=== PATIENT | female | born 1960 | race Caucasian/White ===

== ENCOUNTER 2018-05-25 17:59 | Inpatient (IN) | payer BC ==
[2018-05-25] MEDS ORDERED: Piperacillin/Tazobactam 4.5 GM VIAL ONE (18:31)
[2018-05-25] MEDS ORDERED: Magnesium 2 GM/50 ML BAG (IN WATER) ONE (18:31)
[2018-05-25 21:12] LABS: Lymphocytes 42 % (21-51); MDiff Complete? YES; Mean Corpuscular HGB CONC 32.2 g/dL (32.0-36.0); Mean Corpuscular Hemoglobin 30.1 pg (27.0-31.0); Mean Corpuscular Volume 93.4 fL (78.0-98.0); Mean Platelet Volume 7.9 fL (7.4-10.4); Monocytes 13 % (0-10); Neutrophil 43 % (42-75); Platelet Count 139 thou/uL (130-400); Platelet Morphology Comment Appears Adequate; RBC Distribution Width 14.9 % (11.5-14.5); Reactive Lymphocytes 2 % (0-10); Red Blood Cell (RBC) Count 3.32 mill/uL (4.20-5.40); White Blood Cell (WBC) Count 5.7 thou/uL (4.8-10.8)
[2018-05-25 21:38] LABS: Hemoglobin 9.4 g/dL (12.0-16.0)
[2018-05-25] MEDS ORDERED: Ondansetron ODT 4 MG TAB SL PRN (21:50)
[2018-05-25] MEDS ORDERED: Acetaminophen 325 MG TAB PO PRN (21:50)
[2018-05-25] MEDS ORDERED: Ondansetron PF 4 MG/2 ML Vial IVP PRN (21:50)
[2018-05-25] MEDS ORDERED: Sodium Chloride 0.9% 1,000 ML IV SCH (21:50)
[2018-05-25] MEDS ORDERED: Morphine 4 MG/ML VIAL SLOW IVP PRN (21:51)
[2018-05-25 22:10] LABS: Anion Gap 10 mmol/L (10-20); BUN (Urea Nitrogen) 11 mg/dL (9.8-20.1); Calc. Creatinine Clearance 0 mL/min (70-130); Carbon Dioxide 29 mmol/L (22-29); Chloride 97 mmol/L (98-107); Estimated GFR-MDRD 52; Glucose 87 mg/dL (70-105); Iron 37 ug/dL (50-170); Iron Binding Capacity, Total 194 mcg/dL (265-497); Potassium 3.1 mmol/L (3.5-5.1); Sodium 133 mmol/L (136-145)
[2018-05-25] MEDS: Pantoprazole 40 MG VIAL IVP SCH (22:33)
[2018-05-25 22:40] VITALS: BMI 37.1
[2018-05-26] MEDS: NS 0.9% w/ 40 MEQ KCL 1,000 ML IV SCH (01:52)
[2018-05-26] MEDS: Piperacillin/Tazobactam 3.375 GM in Sodium Chloride 0.9% 100 ML IVPB SCH (01:52)
--- NOTE | 2018-05-26 02:14 | HP ---
PRIMARY CARE PHYSICIAN: Dr. Melgar. CHIEF COMPLAINT: GI bleed. HISTORY OF PRESENT ILLNESS: Ms. Piper is a 58-year-old female who was a transfer from [facility] ER for a GI bleed, who has had rectal bleeding since 03/03/2018. Reports that it had stopped for the last 2 days, it had resumed today. She reports associated diffuse abdominal pain, back pain. The patient does report that she had had banding of hemorrhoids done 2 weeks ago with moderate success. Reports that she still has sergo red blood per rectum. She was evaluated in the emergency room in [place]. She had a hemoglobin of 6.7. They gave her 3 units of packed red blood cells. 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 Reports that she has had some abdominal distention and 3+ bilateral pitting edema. She has been increasingly getting worse over the last several weeks. The patient's hemoglobin was rechecked on arrival here and is 10.0. Sodium 133, potassium 3.1. Iron is 37, TIBC is 194, percent saturation is 19, and ferritin is 101.16. The patient was given a dose of Zosyn in the emergency room and magnesium 2 g and will be admitted to the medical floor for further management and GI consult. PAST MEDICAL HISTORY: Includes cirrhosis, hep C. Does report hematochezia intermittently since March. PAST SURGICAL HISTORY: Hysterectomy, tonsillectomy, cholecystectomy, hemorrhoid banding 2 weeks ago. SOCIAL HISTORY: Denies current alcohol use. Does report alcohol use in the past. Denies drug use. She is a former smoker. FAMILY HISTORY: She does live with her . KNOWN ALLERGIES: None. CURRENT MEDICATIONS: 1. Hydrocodone/Tylenol 5 mg/300 mg q.6 hours as needed. 2. Lasix 20 mg p.o. daily. 3. MiraLAX 17 g daily as needed. 4. Xanax 0.25 mg p.o. as needed. REVIEW OF SYSTEMS: CONSTITUTIONAL: The patient denies chills or fever. EYES: Denies any eye pain or vision changes. ENT: Denies sore throat or rhinorrhea. CARDIOVASCULAR: Denies chest pain or palpitations. RESPIRATORY: Denies shortness of breath or cough. GI: Does report diffuse abdominal pain. Denies constipation, diarrhea, nausea, or vomiting. Does report some hematochezia. Reports melena as well as bright red blood per rectum. MUSCULOSKELETAL: Reports some chronic back pain. Denies deformity or fall. Denies injury. SKIN: Denies rash or changes. NEUROLOGIC: Denies headache. Notes all other review of systems are negative unless mentioned in the HPI. PHYSICAL EXAMINATION: VITAL SIGNS: Blood pressure 104/58, pulse is 86, respirations 20, temperature is 98, and O2 saturations are 93% on room air. CONSTITUTIONAL: The patient appears nontoxic, is alert and oriented to person, place, and time. HEENT: Head is atraumatic and normocephalic. Eyes; eyelids are normal to inspection. Pupils are equally round and reactive to light. ENT; mucous membranes are moist. Mouth exam is normal. NECK: Normal range of motion. Trachea is midline. RESPIRATORY/CHEST: Breath sounds are clear. Chest movement is symmetrical. CARDIOVASCULAR: Heart rate, regular rate and rhythm. Heart sounds are normal. ABDOMEN: Diffusely mildly tender. Bowel sounds are heard. BACK: Normal to inspection. Normal range of motion. No tenderness. EXTREMITIES: Upper extremity; normal inspection. Normal range of motion. Lower extremity; normal range of motion. Pedal pulses are equal bilaterally. Edema is noted bilaterally +2. NEURO: The patient is oriented to person, place, and time. Speech is normal. No focal motor or sensory deficits. SKIN: Warm, dry, normal in color. PSYCHIATRIC: The patient has normal affect. IMAGING STUDIES: EKG in the emergency room shows beats per minute 91, axis is normal, low-voltage QRS, prolonged QT. The patient is a full code. ASSESSMENT AND PLAN: 1. Gastrointestinal bleed. We will obtain serial hemoglobin and hematocrit. We will start IV fluids, Protonix IV q.12. Iron studies have been ordered. We will keep the patient n.p.o. Dr. Quiros, GI physician has been contacted by the ER. We will consult them to see the patient as an inpatient. 2. Hyponatremia. Sodium is currently 133. We will give normal saline at 120 mL/h. 3. Potassium is 3.1. We will supplement. We will add some potassium to fluids and recheck in the morning. 4. History of cirrhosis and ascites. We will check liver function, coagulation studies in the morning. GI will be consulted for gastrointestinal bleed as well. Hospital course will depend on clinical findings. Job ID: [id number]
[2018-05-26 05:06] LABS: INR-International Normal Ratio 1.8; Prothrombin Time 21.3 SEC (12.0-14.7)
[2018-05-26 05:18] LABS: ALT (SGPT) 19 U/L (8-55); AST (SGOT) 58 U/L (5-34); Albumin 1.8 g/dL (3.5-5.0); Alkaline Phosphatase 84 U/L (40-150); Anion Gap 8 mmol/L (10-20); BUN (Urea Nitrogen) 10 mg/dL (9.8-20.1); Bilirubin, Total 2.6 mg/dL (0.2-1.2); Calc. Creatinine Clearance 91 mL/min (70-130); Calcium 7.8 mg/dL (7.8-10.44); Carbon Dioxide 29 mmol/L (22-29); Chloride 99 mmol/L (98-107); Estimated GFR-MDRD 56; Globulin 3.1 g/dL (2.4-3.5); Glucose 74 mg/dL (70-105); Protein, Total 4.9 g/dL (6.0-8.3); Sodium 133 mmol/L (136-145)
[2018-05-26 05:56] LABS: Lymphocytes 51 % (21-51); MDiff Complete? YES; Mean Corpuscular HGB CONC 33.3 g/dL (32.0-36.0); Mean Corpuscular Hemoglobin 31.2 pg (27.0-31.0); Mean Corpuscular Volume 93.7 fL (78.0-98.0); Mean Platelet Volume 8.2 fL (7.4-10.4); Monocytes 10 % (0-10); Neutrophil 39 % (42-75); Platelet Count 133 thou/uL (130-400); Platelet Morphology Comment Appears Adequate; RBC Distribution Width 14.9 % (11.5-14.5); Red Blood Cell (RBC) Count 2.88 mill/uL (4.20-5.40); White Blood Cell (WBC) Count 4.7 thou/uL (4.8-10.8)
[2018-05-26] MEDS ORDERED: Bisacodyl 5 MG TAB PO PRN (07:02)
[2018-05-26] MEDS ORDERED: hydrALAZINE 20 MG/ML VIAL SLOW IVP PRN (07:02)
[2018-05-26] MEDS ORDERED: Eucerin (Mineral Oil/Petrolatum,White) 30 gm Jar TOP PRN (07:02)
[2018-05-26] MEDS ORDERED: Calcium Carbonate 500 MG ChewTAB PO PRN (07:02)
[2018-05-26] MEDS ORDERED: Artificial Tears 18 DROP/0.9 ML EA EYE PRN (07:02)
[2018-05-26] MEDS ORDERED: Ondansetron ODT 4 MG TAB SL PRN (07:02)
[2018-05-26] MEDS ORDERED: Senokot S 8.6-50 MG TAB PO PRN (07:02)
[2018-05-26] MEDS ORDERED: Sodium Chloride 0.65% Nasal 44 ML BOT EA NARE PRN (07:02)
[2018-05-26] MEDS ORDERED: Ondansetron PF 4 MG/2 ML Vial IVP PRN (07:02)
[2018-05-26] MEDS ORDERED: Acetaminophen 500 MG TAB PO PRN (07:02)
[2018-05-26] MEDS ORDERED: Cepastat Lozenges 1 LOZ PO PRN (07:02)
[2018-05-26] MEDS ORDERED: Diabetic Tussin 200 MG/10 ML UDCUP PO PRN (07:02)
[2018-05-26] MEDS ORDERED: HYDROcodone/Acetaminophen 10/325 mg Tablet PO PRN (07:05)
[2018-05-26] MEDS ORDERED: ALPRAZolam 1 MG TAB PO PRN ×2 (07:05→20:19)
[2018-05-26] MEDS ORDERED: Phytonadione 10 MG/ML AMP SC SCH (07:15)
--- NOTE | 2018-05-26 08:11 | ULT ---
FUltrasound abdomen limited: ) Right upper quadrant) 05/26/2018 HISTORY: 58-year-old female with cirrhosis FINDINGS: There is a moderate amount of free fluid in the right upper quadrant surrounding the liver. Hepatic margins are very nodular and irregular. Liver is small. No hydronephrosis of right kidney. Pancreas has heterogeneous echotexture, nonspecific and incompletely evaluated. Common duct caliber is 12.5 mm, dilated. Gallbladder is surgically absent. IMPRESSION: 1. Advanced cirrhosis of the liver. 2. Moderate ascites. 3. Status post cholecystectomy. 4. Dilated common duct, 12.5 mm
[2018-05-26] MEDS ORDERED: Metolazone 5 MG TAB PO SCH (10:30)
[2018-05-26] MEDS ORDERED: Furosemide 40 MG/4 ML VIAL SLOW IVP SCH ×2 (10:30→14:00)
[2018-05-26] MEDS ORDERED: Potassium Chloride 20 MEQ TAB PO SCH (10:30)
--- NOTE | 2018-05-26 10:39 | PDOC.PN ---
- Subjective Encounter Start Date: 05/26/18 Encounter Start Time: 07:20 Patient seen and examined. No overnight events she has abdominal distention, leg edema, recent haemorrhoids surgery, has rectal bleeding - Objective Resuscitation Status - Order Detail: 05/25/18 19:32 Resuscitation Status Routine Co-Sign Provider: Resuscitation Status: FULL: Full Resuscitation Discussed with: patient MAR Reviewed: Yes Vital Signs & Weight: Vital Signs (12 hours) Temp Pulse Resp BP Pulse Ox 05/26/18 07:45 97.3 F L 89 18 115/59 L 93 L 05/26/18 03:45 97.9 F 91 14 113/56 L 93 L 05/25/18 23:56 94 L Weight Weight 207 lb 8 oz I&O: 05/25/18 05/26/18 05/27/18 06:59 06:59 06:59 Intake Total 775 Output Total 700 Balance 75 Result Diagrams: 05/26/18 04:43 05/26/18 04:43 Radiology Reviewed by me: Yes (US abdomen) EKG Reviewed by me: Yes (nsr) Phys Exam - Physical Examination Constitutional: NAD HEENT: PERRLA, moist MMs pallor+, icterus+ Neck: no nodes, supple Respiratory: no wheezing, no rales, no rhonchi reduced air entry at base Cardiovascular: RRR, no significant murmur, no rub Gastrointestinal: soft ascites+, tenderness+ Musculoskeletal: pulses present, edema present Neurological: non-focal, normal sensation Lymphatic: no nodes Psychiatric: normal affect, A&O x 3 Skin: no rash, normal turgor Dx/Plan (1) Alcoholic cirrhosis of liver with ascites Code(s): K70.31 - ALCOHOLIC CIRRHOSIS OF LIVER WITH ASCITES Status: Acute (2) Abnormal LFTs Code(s): R94.5 - ABNORMAL RESULTS OF LIVER FUNCTION STUDIES Status: Acute (3) Anemia due to acute blood loss Code(s): D62 - ACUTE POSTHEMORRHAGIC ANEMIA Status: Acute (4) Coagulopathy Status: Acute (5) GI bleed Code(s): K92.2 - GASTROINTESTINAL HEMORRHAGE, UNSPECIFIED Status: Acute (6) Hypokalemia Code(s): E87.6 - HYPOKALEMIA Status: Acute (7) Hyponatremia Code(s): E87.1 - HYPO-OSMOLALITY AND HYPONATREMIA Status: Acute (8) Anxiety and depression Code(s): F41.9 - ANXIETY DISORDER, UNSPECIFIED; F32.9 - MAJOR DEPRESSIVE DISORDER, SINGLE EPISODE, UNSPECIFIED Status: Chronic (9) Obesity (BMI 30-39.9) Code(s): E66.9 - OBESITY, UNSPECIFIED Status: Chronic - Plan cont current plan of care, plan discussed w/ family, continue antibiotics * GI consulted * repeat labs tomorrow * check AFP, hepatitis profile, * US abdomen done and reviewed * will do diagnostic and therapeutic paracentesis * change antibiotics to rocephin * add lasix and zaroxolyn * replace potassium * medication reviewed as below * symptomatic treatment * discussed with . Review of Systems - Review of Systems ENT: negative: Ear Pain, Ear Discharge, Nose Pain, Nose Discharge, Nose Congestion, Mouth Pain, Mouth Swelling, Throat Pain, Throat Swelling, Other Respiratory: negative: Cough, Dry, Shortness of Breath, Hemoptysis, SOB with Excertion, Pleuritic Pain, Sputum, Wheezing Cardiovascular: edema. negative: chest pain, palpitations, orthopnea, paroxysmal nocturnal dyspnea, light headedness, other Gastrointestinal: Abdominal Pain, Hematochezia. negative: Nausea, Vomiting, Diarrhea, Constipation, Melena, Other Genitourinary: negative: Dysuria, Frequency, Incontinence, Hematuria, Retention , Other Musculoskeletal: negative: Neck Pain, Shoulder Pain, Arm Pain, Back Pain, Hand Pain, Leg Pain, Foot Pain, Other Skin: negative: Rash, Lesions, [place], Bruising, Other - Medications/Allergies Allergies/Adverse Reactions: Allergies Allergy/AdvReac Type Severity Reaction Status Date / Time No Known Drug Allergies Allergy Unverified 05/25/18 19:51 Medications: Current Medications Acetaminophen (Tylenol) 500 mg PO Q6H PRN PRN Reason: Mild Pain (1-3) Hydrocodone Bitart/Acetaminophen ([place] 10/325) 1 tab PO Q4H PRN PRN Reason: Moderate Pain (4-6) Alprazolam (Xanax) 1 mg PO HS PRN PRN Reason: Anxiety Artificial Tears (Tears Naturale) 2 drop EA EYE PRN PRN PRN Reason: Dry Eyes Bisacodyl (Dulcolax) 10 mg PO DAILYPRN PRN PRN Reason: Constipation Calcium Carbonate (Tums) 1,000 mg PO Q4H PRN PRN Reason: Heartburn or Indigestion Furosemide (Lasix) 40 mg SLOW IVP 0600,1400 [facility] Furosemide (Lasix) 40 mg SLOW IVP NOW [facility] Stop: 05/26/18 12:30 Guaifenesin (Robitussin Sf) 200 mg PO Q4H PRN PRN Reason: Cough Hydralazine HCl (Apresoline) 10 mg SLOW IVP Q4H PRN PRN Reason: SBP > 180 and HR < 70 Ceftriaxone Sodium 2 gm/ (Sodium Chloride) 100 mls @ 200 mls/hr IVPB 1100 [facility] Lactulose (Lactulose) 0 gm PO DAILY PRN PRN Reason: Constipation Metolazone (Zaroxolyn) 5 mg PO NOW [facility] Stop: 05/26/18 12:30 Metolazone (Zaroxolyn) 5 mg PO 0830 [facility] Mineral Oil/White Petrolatum (Eucerin Cream) 0 gm TOP BIDPRN PRN PRN Reason: Dry Skin Ondansetron HCl (Zofran Odt) 4 mg SL Q6H PRN PRN Reason: Nausea/Vomiting Ondansetron HCl (Zofran) 4 mg IVP Q6H PRN PRN Reason: Nausea/Vomiting Pantoprazole Sodium (Protonix) 40 mg IVP Q12HR [facility] Last Admin: 05/25/18 22:33 Dose: 40 mg Potassium Chloride (K-Dur) 40 meq PO NOW [facility] Stop: 05/26/18 12:30 Potassium Chloride (K-Dur) 20 meq PO QA[facility] Senna/Docusate Sodium (Senokot S) 2 tab PO BID PRN PRN Reason: Constipation Sodium Chloride (Flush - Normal Saline) 10 ml IVF PRN PRN PRN Reason: Saline Flush Sodium Chloride ([place] 0.65%) 0 ml EA NARE QIDPRN PRN PRN Reason: Nasal Congestion Throat Lozenges (Cepastat Lozenges) 1 denise PO Q2H PRN PRN Reason: Sore Throat
[2018-05-26 11:14] LABS: Hemoglobin 9.6 g/dL (12.0-16.0)
[2018-05-26] MEDS ORDERED: Sodium Bicarbonate 2.5 MEQ/5 ML VIAL ONE (11:18)
[2018-05-26] MEDS: Pantoprazole 40 MG VIAL IVP SCH ×2 (11:24→21:29)
--- NOTE | 2018-05-26 14:24 | ULT ---
FUltrasound-guided paracentesis: HISTORY: Ascites; need for diagnostic and therapeutic paracentesis FINDINGS: Informed consent obtained prior to the procedure. Preprocedural imaging demonstrated signif icant ascites throughout the abdomen and pelvis. Right lower quadrant prepped and draped in normal sterile fashion and anesthetized with 1% buffered l idocaine. With direct sonographic guidance, 5 Dive[place] Yueh catheter is advanced into the ascites and removal of the stylet yielded yellow fluid. 2600 L were removed. The patient tolerated the procedure well. No po stprocedural complications. IMPRESSION: Successful ultrasound-guided paracentesis yielding 2600 L of yellow fluid.
[2018-05-26 14:59] LABS: BF Color Yellow; BF RBC Count - Manual 180 /cumm; BF WBC/Nonhematics Ct. - Manua 98 /cumm; Body Fluid Source Ascites Body Fluid; Clarity Hazy (Clear); Tube # EDTA
[2018-05-26 15:26] LABS: BF Segmented Neutrophils 4 %; Cell Count Non Hematic 62 %; Lymphocytes 34 %
--- NOTE | 2018-05-26 15:57 | CON ---
DATE OF CONSULTATION: HISTORY OF PRESENT ILLNESS: Ms. Piper is a 58-year-old female with history of cirrhosis, who had been having rectal bleeding since March, had seen Dr. Nelson in [place] and had banding possibly in his office back in April and then more recently had further bleeding and about 3 weeks ago, was ended up at the hospital at [facility] in [facility] and had a sounds like surgical hemorrhoidectomy with Dr. Reyes. The notes that her bleeding slowly diminished and then almost completely stopped a few days ago and yesterday she began to have profuse rectal bleeding and ultimately had a presyncopal episode and fell and was transferred, ended up at [facility]. The states that they were told that the doctors there could not take care of her problem and it is unclear if they contact the doctors, who had operated her previously. It sounds like they probably did and 's impression was that they felt they could do no more for her. Therefore, she was transferred to this hospital. The family and the nurse notes that she continues to have some rectal bleeding. She did receive 3 units of blood at the outside facility, here on presentation complained of rectal and abdominal pain and was given Zosyn in the emergency room and changed to Rocephin. She presently is getting ready to go downstairs for a paracentesis. She had a CAT scan at the outside facility that showed inflammatory changes in the rectal area, ascites with some free fluid in the cirrhotic liver. There are also pancreatic calcifications. Other issues, the patient's gives most of the history, but more recently she has had worsening ascites and edema over the past couple of weeks. She apparently had a paracentesis once about in 2012 or , but that seems to be associated with a large ovarian tumor. As far as a cause of her cirrhosis, the notes he thinks this is from alcohol. He states hepatitis C testing has been negative before, but there is a note in the H and P that indicates that she has had a history of hepatitis C that is being tested now. Her main complaints are worsening swelling in the legs and abdomen, abdominal pain, rectal pain, and rectal bleeding. She has had some issues with confusion recently and notes that in [place] is the first time she was told about encephalopathy and she was given some lactulose there. Presently, he feels she is little more sedated than typical. She has received some Xanax here for history of anxiety. She has also been receiving [place] for pain. She has had nothing to eat or drink today except for sips of water with [place] earlier. PAST MEDICAL HISTORY: 1. Cirrhosis, it is unclear if this is just from alcohol or from hepatitis C as well. 2. Rectal bleeding since March, which is attributed to hemorrhoids, those records are not available. It is unclear if portal hypertension was involved. The does note that she had small varices in the stomach. They were not bleeding. PAST SURGICAL HISTORY: 1. Notable for hysterectomy secondary to a large ovarian mass that was apparently cystic and benign, and pressing up on her abdomen, causing breathing problems at that time, around that time, she had a paracentesis as well. 2. Tonsillectomy. 3. Cholecystectomy. 4. Hemorrhoid banding in April and surgery 2 to 3 weeks ago as noted per HPI. SOCIAL HISTORY: The patient stopped drinking about 3 weeks ago at her last hospitalization she states. She denies drug use. She is a former smoker. FAMILY HISTORY: Lives with her . There is no family history of liver disease or colon disease. ALLERGIES: NONE KNOWN. MEDICATIONS: At home; 1. Hydrocodone-Tylenol 5/300. 2. Lasix. 3. MiraLAX. 4. Xanax 0.25 mg at bedtime. 5. Colace. 6. . Present medications here; 1. Tylenol. 2. Artificial Tears. 3. Dulcolax. 4. Tums. 5. Ceftriaxone 2 g daily. 6. Furosemide 40 mg daily. 7. Guanfacine. 8. Hydralazine p.r.n. 9. Hydrocodone p.r.n. 10. Lactulose. 11. Zofran p.r.n. 12. Protonix. 13. Potassium p.r.n. 14. No IV fluids presently. 15. She is on Zaroxolyn as well. REVIEW OF SYSTEMS: Negative for fever or chills. She has had recent weight gain she attributes to her edema. She does not feel well and has not for a few months. CARDIOVASCULAR: Some shortness of breath with movement. GI: No nausea or vomiting. No dysphagia or odynophagia. No history of hematemesis refer to HPI. All other review of systems complete and negative. PHYSICAL EXAMINATION: GENERAL: She is resting in bed. Nurse is at the bedside. VITAL SIGNS: Blood pressure 115/59, respirations 18, 93% on room air, pulse 83, and temperature 97. GENERAL: She is anicteric. She is awake and knows what day it is and recognize her . She is a little slow in her speech. Oropharynx without lesions. NECK: Supple. No adenopathy. LUNGS: Clear but decreased breath sounds are noted with decreased respiratory excursion. HEART: Regular rate and rhythm. ABDOMEN: Has shifting dullness and fluid wave. There is mild tenderness, but there is no rebound or guarding. RECTAL: She refused a rectal exam because her rectum is very painful right now. Perianal exam reveals some blood but no clots and no overt lesions. EXTREMITIES: Reveal edema all the way up to from her legs on both sides about up to her abdominal wall. She has mild asterixis. Reflexes are mildly hyperreflexic. SKIN: Without overt lesions, tall on her skin and abdomen. LABORATORY STUDIES: Hemoglobin was 6.3 thousand, she received 2 units of blood, it is 10 here last night at 2046 hours. Presently today, white count 4.6, hemoglobin 9, it was 9.6 at 10:46. Platelet count 133. INR is 1.8. Sodium 133, potassium is 3, bicarb 99, bilirubin 2.6, AST and ALT 58 and 19, alkaline phosphatase is 84, protein is 4.9, albumin is 1.8, ammonia is 49. Ferritin was 110, iron 37, TIBC 194. Abdominal ultrasound here revealed cirrhosis, moderate ascites, dilated duct of 12.5 mm, previous cholecystectomy. ASSESSMENT: 1. Rectal bleeding. This seems to be related to history of hemorrhoids. This may have been actually rectal varices. It is unclear the record is not available. We will need to obtain those. She has ongoing bleeding. It seems like that the surgery 2 to 3 weeks ago in the [place] helped, but in the past 24 to 48 hours, she had worsening bleeding, required transfusion, she is n.p.o. and we will proceed with unprepped flexible sigmoidoscopy today. She will not permit any exam additionally by the bedside secondary to the pain. 2. Cirrhosis seemingly from alcohol, may be hepatitis C related, but her notes that is not the case that is being tested presently. 3. Ascites needs to be ruled out for spontaneous bacterial peritonitis, which she is going for tap now. 4. Ascites and edema. She has been on diuretics. These need to be held until we determine if she has spontaneous bacterial peritonitis or not. Would continue the empiric antibiotics. Unfortunately, cultures were not obtained anywhere before starting, antibiotics were started. 5. History of cirrhosis with alcoholism. She was started on multivitamin, thiamine, and folate. 6. She needs to be started on IV fluids D5 normal saline with 20 of K, once her SBP status is further characterized, we can decide with IV fluids, diuretics, and albumin. 7. The patient does note she had an appointment to see Dr. Cayden Dixon in [place] on 06/08/2018, I told her to keep that appointment presently. 8. Hepatoma screen has been ordered. 9. We will obtain records from her previous surgery and endoscopies in [place] and [facility] respectively. We will follow along with you. Thank you for this consultation. Job ID: [id number]
[2018-05-26] MEDS ORDERED: Octreotide Acetate 100 MCG/ML VIAL SLOW IVP SCH (17:00)
[2018-05-26] MEDS: cefTRIAXone\\ROCEPHIN 2 GM in Sodium Chloride 0.9% 100 ML IVPB SCH (17:50)
[2018-05-26] MEDS: Octreotide Acetate 1,250 MCG in Sodium Chloride 0.9% 250 ML 250 ML IVPB SCH (17:53)
[2018-05-26] MEDS: Carvedilol 6.25 MG TAB PO SCH (19:28)
[2018-05-27 04:08] LABS: #Basophils 0.1 thou/uL (0.0-0.2); #Eosinphils 0.1 thou/uL (0.0-0.7); #Lymphocytes 2.1 thou/uL (1.20-3.40); #Monocytes 0.6 thou/uL (0.11-0.59); #Neutrophils 1.6 thou/uL (1.40-6.50); %Basophils 1.7 % (0.0-1.0); %Eosinophils 2.8 % (0.0-10.0); %Lymphocytes 46.2 % (21.0-51.0); %Monocytes 14.1 % (0.0-10.0); %Neutrophils 35.2 % (42.0-75.0); Hemoglobin 7.9 g/dL (12.0-16.0); Mean Corpuscular HGB CONC 32.4 g/dL (32.0-36.0); Mean Corpuscular Hemoglobin 30.7 pg (27.0-31.0); Mean Corpuscular Volume 94.9 fL (78.0-98.0); Mean Platelet Volume 7.7 fL (7.4-10.4); Platelet Count 121 thou/uL (130-400); RBC Distribution Width 14.9 % (11.5-14.5); Red Blood Cell (RBC) Count 2.57 mill/uL (4.20-5.40); White Blood Cell (WBC) Count 4.5 thou/uL (4.8-10.8)
[2018-05-27 04:27] LABS: Phosphorus 3.4 mg/dL (2.3-4.7)
[2018-05-27 04:29] LABS: ALT (SGPT) 17 U/L (8-55); AST (SGOT) 53 U/L (5-34); Albumin 1.7 g/dL (3.5-5.0); Alkaline Phosphatase 74 U/L (40-150); Anion Gap 10 mmol/L (10-20); BUN (Urea Nitrogen) 11 mg/dL (9.8-20.1); Calc. Creatinine Clearance 88 mL/min (70-130); Calcium 7.6 mg/dL (7.8-10.44); Carbon Dioxide 27 mmol/L (22-29); Chloride 100 mmol/L (98-107); Estimated GFR-MDRD 54; Globulin 2.8 g/dL (2.4-3.5); Glucose 90 mg/dL (70-105); Magnesium 1.7 mg/dL (1.6-2.6); Potassium 3.6 mmol/L (3.5-5.1); Protein, Total 4.5 g/dL (6.0-8.3); Sodium 133 mmol/L (136-145)
[2018-05-27 04:50] LABS: HBCM Index 0.07 S/CO (0-0.79); HBSAg Index 0.29 S/CO (0-0.99); Hep A IgM AB Non-Reactive (NonReactive); Hep A IgM S/CO 0.24 S/CO (0-0.79); Hep B Surf Ag Non-Reactive S/CO (NonReactive); Hep C IgG Ab Non-Reactive (NonReactive); Hep C Index 0.17 S/CO (0-0.79); Hepatitis B Core IgM Abs Non-Reactive (NonReactive)
[2018-05-27] MEDS ORDERED: Sodium Chloride 0.9% 1,000 ML IV SCH (05:30)
[2018-05-27] MEDS ORDERED: Potassium Chloride 20 MEQ TAB PO SCH (08:00)
[2018-05-27] MEDS ORDERED: Metolazone 5 MG TAB PO SCH (08:30)
[2018-05-27] MEDS: Carvedilol 6.25 MG TAB PO SCH (08:44)
[2018-05-27] MEDS: Albumin 25% 25 GM/100 ML BOT IVPB SCH ×2 (08:48→14:45)
[2018-05-27] MEDS ORDERED: Multivitamin W/ Minerals 1 TAB PO SCH (09:00)
[2018-05-27] MEDS ORDERED: Folic Acid 1 MG TAB PO SCH (09:00)
[2018-05-27] MEDS ORDERED: Thiamine 100 MG TAB PO SCH (09:00)
--- NOTE | 2018-05-27 09:27 | OP ---
DATE OF PROCEDURE: 05/26/2018 PROCEDURE PERFORMED: Flexible sigmoidoscopy. PREOPERATIVE DIAGNOSES: 1. Complex rectal pain. 2. Frequent rectal bleeding. 3. Recent hemorrhoidectomy and banding in March and April at outside facilities. 4. Cirrhosis with ascites and evidence of portal hypertension with INR of 1.8 and platelets of 133. POSTOPERATIVE DIAGNOSES: 1. Evidence of previous hemorrhoidectomy, looks like it was a sored ?hemorrhoidectomy. No signs of previous banding. 2. Bleeding from oozing, but no pulsatile bleeding, which is vigorous and at times in a stream from varices distal to the anorectal verge. RECOMMENDATIONS: 1. Octreotide drip. Continue antibiotics. 2. Serial H and H, transfuse as needed. 3. Beta-roman. 4. Would pursue transfer to facility with TIPS available. This is bleeding related to portal hypertension and is not likely to be controlled with surgery or banding. She has failed both of those measures previously. If she begins to have evidence of emergent life-threatening bleeding, we could band the oozing hemorrhoids, but at this point in time they are bleeding very slowly and I think they would cause significant pain banding her below the dentate line. ANESTHESIA: TIVA. PROCEDURE IN DETAIL: The patient was informed of the risks, benefits, possible complications of endoscopy including perforation, reaction to medication, and aspiration. Informed consent was obtained. The patient was brought to endoscopy suite where she was sedated in a gradual fashion. Once she was comfortable, rectal exam was performed. There was no evidence of thrombosis of hemorrhoids or masses or abscesses. The endoscope was advanced in the anal canal. The rectum was clear up to the sigmoid. The scope was brought to the rectum. There was fresh blood in the anorectal opening. Retroflexed views revealed some scarring consistent with previous hemorrhoidectomy. There was some friable tissue. There was bleeding in the anal canal and below the dentate line. There was no pulsatile bleeding. I actually asked another hematologist to take a look at it. When I entered and retroflexed, there was a little bit of more continuous stream of blood consistent with portal hypertensive bleeding but then that stopped and could not get it to recur. On close evaluation, there was slight oozing of two of the hemorrhoids just below the dentate line. Again, there was no pulsatile bleeding and no nipple sign or sign of a thrombin clot. The scope was removed. As it was felt this was likely portal hypertensive oozing and bleeding, we will go and start octreotide and Coreg, continue antibiotics, and transfuse as necessary. I think transfer to a tertiary facility where TIPS is available will be the next feasible step. Job ID: [id number]
[2018-05-27 10:50] LABS: Hemoglobin 8.1 g/dL (12.0-16.0)
[2018-05-27 11:04] VITALS: BP 87/49
--- NOTE | 2018-05-27 11:22 | PDOC.PN ---
- Subjective Encounter Start Date: 05/27/18 Encounter Start Time: 09:40 -: old records requested/rev Patient seen and examined. No new complaints. No overnight events pt's BP is low but pt is asymptomatic, no active bleeding - Objective Resuscitation Status - Order Detail: 05/25/18 19:32 Resuscitation Status Routine Co-Sign Provider: Resuscitation Status: FULL: Full Resuscitation Discussed with: patient MAR Reviewed: Yes Vital Signs & Weight: Vital Signs (12 hours) Temp Pulse Pulse Resp BP BP Pulse Ox 05/27/18 11:03 98.5 F 78 13 87/49 L 91 L 05/27/18 10:38 98.8 F 05/27/18 10:12 94 L 05/27/18 08:14 98.7 F 78 18 81/45 L 93 L 05/27/18 07:21 88/45 L 05/27/18 04:00 98 F 85 16 80/44 L 95 Weight Weight 207 lb 8 oz Most Recent Monitor Data Heart Rate from ECG 76 NIBP 89/50 NIBP BP-Mean 63 Respiration from ECG 18 SpO2 90 I&O: 05/26/18 05/27/18 05/28/18 06:59 06:59 06:59 Intake Total 775 421 0 Output Total 700 2600 Balance 75 -2179 0 Result Diagrams: 05/27/18 10:42 05/27/18 03:59 EKG Reviewed by me: Yes Phys Exam - Physical Examination Constitutional: NAD HEENT: PERRLA, moist MMs icterus+ Neck: no JVD, supple Respiratory: no wheezing, no rales, no rhonchi Cardiovascular: RRR, no significant murmur, no rub Gastrointestinal: soft, positive bowel sounds ascites+ Musculoskeletal: pulses present, edema present Neurological: non-focal, normal sensation Lymphatic: no nodes Psychiatric: normal affect, A&O x 3 Skin: no rash, normal turgor Dx/Plan (1) Alcoholic cirrhosis of liver with ascites Code(s): K70.31 - ALCOHOLIC CIRRHOSIS OF LIVER WITH ASCITES Status: Acute (2) Abnormal LFTs Code(s): R94.5 - ABNORMAL RESULTS OF LIVER FUNCTION STUDIES Status: Acute (3) Anemia due to acute blood loss Code(s): D62 - ACUTE POSTHEMORRHAGIC ANEMIA Status: Acute (4) Coagulopathy Status: Acute (5) GI bleed Code(s): K92.2 - GASTROINTESTINAL HEMORRHAGE, UNSPECIFIED Status: Acute (6) Hypokalemia Code(s): E87.6 - HYPOKALEMIA Status: Acute (7) Hyponatremia Code(s): E87.1 - HYPO-OSMOLALITY AND HYPONATREMIA Status: Acute (8) Anxiety and depression Code(s): F41.9 - ANXIETY DISORDER, UNSPECIFIED; F32.9 - MAJOR DEPRESSIVE DISORDER, SINGLE EPISODE, UNSPECIFIED Status: Chronic (9) Obesity (BMI 30-39.9) Code(s): E66.9 - OBESITY, UNSPECIFIED Status: Chronic - Plan cont current plan of care, plan discussed w/ family, continue antibiotics * as per GI, will need TIPS procedure * will transfer to [facility] when arrangement done * discussed with family * medication reviewed as below * symptomatic treatment * continue albumin * hold BP meds for low BP * continue rocephin. Review of Systems - Review of Systems Constitutional: weakness, malaise. negative: fever, chills, sweats, other ENT: negative: Ear Pain, Ear Discharge, Nose Pain, Nose Discharge, Nose Congestion, Mouth Pain, Mouth Swelling, Throat Pain, Throat Swelling, Other Respiratory: negative: Cough, Dry, Shortness of Breath, Hemoptysis, SOB with Excertion, Pleuritic Pain, Sputum, Wheezing Cardiovascular: negative: chest pain, palpitations, orthopnea, paroxysmal nocturnal dyspnea, edema, light headedness, other Gastrointestinal: negative: Nausea, Vomiting, Abdominal Pain, Diarrhea, Constipation, Melena, Hematochezia, Other Genitourinary: negative: Dysuria, Frequency, Incontinence, Hematuria, Retention , Other Musculoskeletal: negative: Neck Pain, Shoulder Pain, Arm Pain, Back Pain, Hand Pain, Leg Pain, Foot Pain, Other - Medications/Allergies Allergies/Adverse Reactions: Allergies Allergy/AdvReac Type Severity Reaction Status Date / Time No Known Drug Allergies Allergy Unverified 05/25/18 19:51 Medications: Current Medications Acetaminophen (Tylenol) 500 mg PO Q6H PRN PRN Reason: Mild Pain (1-3) Hydrocodone Bitart/Acetaminophen ([place] 10/325) 1 tab PO Q4H PRN PRN Reason: Moderate Pain (4-6) Last Admin: 05/26/18 11:23 Dose: 1 tab Albumin Human (Albumin 25%) 25 gm IVPB Q6H [facility] Stop: 05/28/18 09:01 Last Admin: 05/27/18 08:48 Dose: 25 gm Alprazolam (Xanax) 1 mg PO HSPRN PRN PRN Reason: Insomnia Last Admin: 05/26/18 21:28 Dose: 1 mg Artificial Tears (Tears Naturale) 2 drop EA EYE PRN PRN PRN Reason: Dry Eyes Bisacodyl (Dulcolax) 10 mg PO DAILYPRN PRN PRN Reason: Constipation Folic Acid (Folvite) 1 mg PO DAILY [facility] Last Admin: 05/27/18 08:43 Dose: 1 mg Guaifenesin (Robitussin Sf) 200 mg PO Q4H PRN PRN Reason: Cough Hydralazine HCl (Apresoline) 10 mg SLOW IVP Q4H PRN PRN Reason: SBP > 180 and HR < 70 Ceftriaxone Sodium 2 gm/ (Sodium Chloride) 100 mls @ 200 mls/hr IVPB 1100 [facility] Last Admin: 05/26/18 17:50 Dose: 100 mls Octreotide Acetate 1,250 mcg/ (Sodium Chloride) 251.25 mls @ 10.05 mls/hr IVPB INF [facility] Last Admin: 05/26/18 17:53 Dose: 251.25 mls Iron/Minerals/Multivitamins (Theragran M) 1 tab PO DAILY [facility] Last Admin: 05/27/18 08:43 Dose: 1 tab Lactulose (Lactulose) 20 gm PO DAILY [facility] Last Admin: 05/27/18 08:44 Dose: 20 gm Mineral Oil/White Petrolatum (Eucerin Cream) 0 gm TOP BIDPRN PRN PRN Reason: Dry Skin Ondansetron HCl (Zofran Odt) 4 mg SL Q6H PRN PRN Reason: Nausea/Vomiting Ondansetron HCl (Zofran) 4 mg IVP Q6H PRN PRN Reason: Nausea/Vomiting Pantoprazole Sodium (Protonix) 40 mg PO DAILY [facility] Last Admin: 05/27/18 08:48 Dose: 40 mg Potassium Chloride (K-Dur) 20 meq PO QAM-WM [facility] Last Admin: 05/27/18 08:43 Dose: 20 meq Senna/Docusate Sodium (Senokot S) 2 tab PO BID PRN PRN Reason: Constipation Sodium Chloride (Flush - Normal Saline) 10 ml IVF PRN PRN PRN Reason: Saline Flush Last Admin: 05/26/18 17:50 Dose: 10 ml Sodium Chloride ([place] Nasal Dairy 0.65%) 0 ml EA NARE QIDPRN PRN PRN Reason: Nasal Congestion Thiamine HCl (Thiamine) 100 mg PO DAILY [facility] Last Admin: 05/27/18 08:43 Dose: 100 mg Throat Lozenges (Cepastat Lozenges) 1 denise PO Q2H PRN PRN Reason: Sore Throat
--- NOTE | 2018-05-27 12:15 | DIS ---
DATE OF ADMISSION: 05/25/2018 DATE OF DISCHARGE: 05/27/2018 PRIMARY CARE PHYSICIAN: [facility] Call Admission. DISCHARGE DISPOSITION: [facility]. PRIMARY DISCHARGE DIAGNOSES: End-stage alcoholic cirrhosis of liver with ascites, rectal bleeding due to rectal varices/hemorrhoid, anemia due to acute blood loss, coagulopathy due to liver disease, abnormal LFT due to alcoholic liver disease, dilated bile duct, abnormal electrolytes with hypokalemia and hyponatremia, hypotension due to chronic liver disease. SECONDARY DISCHARGE DIAGNOSES: Obesity with BMI 37, anxiety and depression, alcoholic cirrhosis, chronic anemia. PRIMARY PROCEDURE/OPERATION: Flexible sigmoidoscopy was performed by Dr. [place]. RADIOLOGICAL INVESTIGATION: Abdominal ultrasound showed dilated bile duct cirrhotic liver. Paracentesis was performed by Radiology. SIGNIFICANT LABORATORY DATA: WBC 4.5, hemoglobin 8.1, platelet 121. INR 1.8. Sodium 133, potassium 3.6, BUN 11, creatinine 1.06, calcium 7.6, phosphorus 3.4, magnesium 1.7. AST 53, ALT 17, alkaline phosphatase 74, albumin 1.7. Ascitic fluid WBC 98. Hepatitis profile negative. Ascitic fluid culture negative. DISCHARGE MEDICATIONS: The patient will continue all her previous medication. We are discharging to higher level of care at [facility] and further discharge medication will be prescribed upon discharge from that hospital. HOSPITAL COURSE: A 58-year-old female, who was admitted by Isha Byrd. Please see her H and P for further details. This patient has alcoholic cirrhosis of liver with portal hypertension. This patient had recent hemorrhoid surgery. She was presented to ER for rectal bleeding. She had anemia due to acute blood loss, but she did not require any blood transfusion. The patient was consulted by youth services specialist and they did flexible sigmoidoscopy. The patient was found with rectal variceal bleed versus hemorrhoidal bleed. Gastroenterology recommended to transfer her to higher level of care for TIPS procedure for refractory ascites. During this hospital course, we did a paracentesis and we ruled out SBP. The patient was hypotensive and she was no longer tolerating blood pressure medication. We have to give her albumin before discharge. I spoke with procedure specialist of TIPS over there at [facility] as well as hospitalist at [facility] and updated about the patient's condition and hospital course. The patient has approval for higher level of care to the hospital. Once arrangement is done, then we will consider discharging there. Paperwork for discharge done. Job ID: [id number]
[2018-05-27] MEDS: cefTRIAXone\\ROCEPHIN 2 GM in Sodium Chloride 0.9% 100 ML IVPB SCH (12:29)
[2018-05-27] MEDS: Piperacillin/Tazobactam 3.375 GM in Sodium Chloride 0.9% 100 ML IVPB SCH (14:37)
[2018-05-27] MEDS: NS 0.9% w/ 40 MEQ KCL 1,000 ML IV SCH (14:37)
[2018-05-27] MEDS: Octreotide Acetate 1,250 MCG in Sodium Chloride 0.9% 250 ML 250 ML IVPB SCH (14:45)
[2018-05-27 15:20] VITALS: TEMP 99
[2018-05-27] MEDS ORDERED: Melatonin 3 MG TAB PO PRN (15:30)
--- NOTE | 2018-05-28 09:22 | PRG ---
DATE OF SERVICE: 05/27/2018 SUBJECTIVE: Ms. Piper states she feels better today. She states her told her she is bleeding less, notes that she has had a little bit of blood in her stool, but not large. She was brought to the critical care unit last night, because her blood pressure dropped to 90s. I did not give her Coreg because her blood pressure is in the low side. However, she did get a Ney this morning at 1123. She remains on Rocephin and octreotide drip. We will restart her alprazolam, Protonix, thiamine, multivitamin, and folate. OBJECTIVE: VITAL SIGNS: Temperature 99, heart rate 70 to 80, blood pressure 90/45 to 85/48. GENERAL: She is resting in bed. She is mildly icteric. She is in no distress. She is a little bit sleepy. She is a little bit slow in mentation but she is clearly alert and oriented to person, place, and time. In's and out's weights not recorded. EXTREMITIES: Severe edema. LABORATORY DATA: White count 4.5 today; hemoglobin 7.9 at 4 this morning, 8.1 at 10; platelet count 121. INR 1.8 on admission. Sodium 133, potassium 3.6. BUN and creatinine are 11 and 1.06. Bilirubin is 2. AST and ALT are 53 and 17. Ammonia is 50. Ascitic fluid white blood cell count of 98, albumin 0.3, protein is less than 1. Hepatitis A, B, C negative. ASSESSMENT: 1. Rectal bleeding secondary to hemorrhoids and portal hypertensive disease. She has had surgery and banding at outside facilities and recurrent bleeding requiring transfusion before coming here. I performed a flexible sigmoidoscopy on her last night. She has diffuse bleeding from her hemorrhoids. This is likely related to her portal hypertension, coagulopathy and thrombocytopenia. There is nothing we are going to do to control that here. We placed her on octreotide, her pressure was too low. Keep her on a liquid diet and stool softeners. It was felt it was best that she is transferred to other facility for evaluation for TIPS and possible liver transplant if she does not improve. 2. Cirrhosis secondary to alcohol abuse. Last drink was she says 2 to 3 weeks ago. 3. Hypotension likely related to her liver disease dynamics. She does not appear septic. She is on empiric antibiotics. Her tap was negative. She did not have blood cultures drawn on admission. 4. Renal function, stable. Urine output needs to be followed as does her weight. 5. Chronic pain. I would stop her Ney to tell us what she needs this for, and this is going to worsen her encephalopathy. 6. Anxiety. She does not need the Xanax to sleep at night, can give her melatonin, as it is going to make her encephalopathy worse. Job ID: [id number]
== END 2018-05-27 20:25 | disposition short-term general hospital (02) | DRG 394 ==
LOC: ERS 17:59 → 2NO 21:51 → IMCU/EMU 05-27 09:22
PROVIDERS: ADMIT Emergency Medicine; ATTEND Emergency Medicine
PROC: 0DJD8ZZ Inspection of Lower Intestinal Tract, Via Natural or Artificial Opening Endoscopic (ICD-10-PCS; principal; 2018-05-26)
PROC: 0W9G3ZX Drainage of Peritoneal Cavity, Percutaneous Approach, Diagnostic (ICD-10-PCS; 2018-05-26)
DX: K62.89 Other specified diseases of anus and rectum (principal); K62.5 Hemorrhage of anus and rectum; E87.1 Hypo-osmolality and hyponatremia; D62 Acute posthemorrhagic anemia; D68.4 Acquired coagulation factor deficiency; K76.6 Portal hypertension; K64.9 Unspecified hemorrhoids; I95.9 Hypotension, unspecified; K70.31 Alcoholic cirrhosis of liver with ascites; E87.6 Hypokalemia; F41.9 Anxiety disorder, unspecified; F32.9 Major depressive disorder, single episode, unspecified; E66.9 Obesity, unspecified; Z68.37 Body mass index [BMI] 37.0-37.9, adult; Z87.891 Personal history of nicotine dependence; Z79.899 Other long term (current) drug therapy
CPT/HCPCS: 36415; 36430; 49083; 76705; 80048; 80053; 80074; 82042; 82140; 82728; 83540; 83550; 83735; 84100; 84157; 85014; 85018; 85025; 85060; 85610; 85730; 86850; 86900; 86901; 87070; 87205; 89051; 93005; 96365; 96375; C9113; J0696; J1940; J2354; J2543; J3430; J3475; J3480; J7050; P9016; P9047